=== PATIENT | female | born 1975 | race Caucasian/White ===

== ENCOUNTER 2017-10-04 13:53 | Emergency (ER) | payer OTHER, MEDICAID ==
[2017-10-04] MEDS ORDERED: Ketorolac Tromethamine 30 MG/ML VIAL ONE (15:19)
[2017-10-04] MEDS ORDERED: Insulin Regular 300 UNITS/3 ML VIAL ONE (16:12)
--- NOTE | 2017-10-04 16:54 | ULT ---
PELVIC ULTRASOUND: 10/04/17 HISTORY: Right lower quadrant and pelvic pain. Patient also complains of right hip pain. Symptoms have been pr esent for one week. FINDINGS: The uterus demonstrates slightly heterogeneous appearance but has otherwise normal appearance and no mass is visualized. Uterus measures 10.2 cm x 5.2 cm x 6.8 cm. The endometrial stripe measures 1.1 cm in thickness which is normal in thickness for a premenopausal female patient but would be abnormal in a postmenopausal female patient. No fluid or fluid collection is seen in the endometrial canal. The ovaries demonstrate a normal sonographic appearance bilaterally with the right ovary measuring 2. 7 cm x 1.6 cm x 3.3 cm. Left ovary measuring 2.5 cm x 1.3 cm x 2.3 cm. Doppler evaluation of each ovary demonstrates venous flow with arterial flow documented in the left o vary. There is suggestion of arterial flow in the right ovary. No free fluid is seen in the cul-de-sac. Small Nabothian cysts are seen in the cervix. IMPRESSION: Normal appearing uterus and bilateral ovaries. POS: [facility]
== END 2017-10-04 16:52 | disposition home or self-care (01) ==
LOC: ERS 13:53
DX: E11.65 Type 2 diabetes mellitus with hyperglycemia (principal); E78.5 Hyperlipidemia, unspecified; I10 Essential (primary) hypertension; F32.9 Major depressive disorder, single episode, unspecified; F17.210 Nicotine dependence, cigarettes, uncomplicated; Z79.4 Long term (current) use of insulin; Z79.899 Other long term (current) drug therapy
CPT/HCPCS: 36416; 76856; 96361; 96374; 96375; 99406; J1815; J1885

== ENCOUNTER 2017-10-24 13:21 | Emergency (ER) | payer MEDICAID, OTHER | END 2017-10-24 15:06 | disposition home or self-care (01) | LOC: ERS 13:21 | DX: R10.9 Unspecified abdominal pain (principal); E78.5 Hyperlipidemia, unspecified; E11.9 Type 2 diabetes mellitus without complications; I10 Essential (primary) hypertension; F32.9 Major depressive disorder, single episode, unspecified; F17.210 Nicotine dependence, cigarettes, uncomplicated; Z79.899 Other long term (current) drug therapy; Z79.4 Long term (current) use of insulin | CPT/HCPCS: 99284 ==

== ENCOUNTER 2019-07-20 12:15 | Outpatient (CLI) | payer OTHER ==
[2019-07-20 13:42] LABS: Anion Gap 17 mmol/L (10-20); BUN (Urea Nitrogen) 19 mg/dL (7.0-18.7); Calc. Creatinine Clearance 0 mL/min (70-130); Calcium 9.4 mg/dL (7.8-10.44); Carbon Dioxide 23 mmol/L (22-29); Chloride 95 mmol/L (98-107); Estimated GFR-MDRD 55; Glucose 452 mg/dL (70-105); Potassium 4.8 mmol/L (3.5-5.1); Sodium 130 mmol/L (136-145)
--- NOTE | 2019-07-20 15:27 | EKG ---
Test Reason : Blood Pressure : / mmHG Vent. Rate : 079 BPM Atrial Rate : 079 BPM P-R Int : 170 ms QRS Dur : 082 ms QT Int : 412 ms P-R-T Axes : 064 043 078 degrees QTc Int : 472 ms Sinus rhythm with frequent Premature ventricular complexes in a pattern of bigeminy Possible Left atrial enlargement abnormal When compared with ECG of 15-MAR-2017 16:44, (Unconfirmed) Fusion complexes are no longer Present Confirmed by DR. Rick TREJO ([id number]) on 07/20/2019 3:26:42 PM Referred By: LUCILA Confirmed By:DR. Rick TREJO
== END 2019-07-20 12:16 | disposition home or self-care (01) ==
LOC: LABBT 12:15
PROVIDERS: ATTEND Neurological Surgery
DX: Z01.818 Encounter for other preprocedural examination (principal); M54.16 Radiculopathy, lumbar region
CPT/HCPCS: 80048; 93005; 93010

== ENCOUNTER 2019-07-27 05:46 | Day surgery (SDC) | payer OTHER ==
[2019-07-20 12:32] VITALS: BMI 28.0
--- NOTE | 2019-07-26 21:10 | HP ---
HISTORY OF PRESENT ILLNESS: Ms. Naranjo is a 44-year-old woman here today after admission at [facility] for severe lower back pain and left lower extremity pain L5 fashion. She reportedly passed out on her back and then started to suffer this significant pain. MRI from [facility] revealed severe central canal stenosis at L4-L5 that is the very likely cause of her symptoms. She has not treated this with anything other than medications and home exercises. PAST MEDICAL HISTORY: Seizure disorder. CURRENT MEDICATIONS: Depakote, Diflucan, glyburide, metformin, metronidazole and Zithromax. ALLERGIES: NO KNOWN DRUG ALLERGIES. PHYSICAL EXAMINATION: NEURO: The patient is alert and oriented x3. She is distressed and tearful during the examination. Motor exam is limited secondary to severe pain. Positive straight leg raise on the left. ASSESSMENT: Lumbar radiculopathy. PLAN: Dr. Knight met with the patient, reviewed imaging, and advocated for an L4-5 decompression, possible diskectomy. He explained to the patient the risks, benefits, and alternatives to the procedure. The patient expressed understanding and elected to move forward with surgery as discussed. I do believe the patient is mentally competent and capable of making medical decisions for herself. We will move forward with surgery as planned. Job ID: [id number]
[2019-07-27] MEDS ORDERED: Midazolam HCl 2 mg/2 ml Vial ONE (06:51)
[2019-07-27] MEDS ORDERED: Fentanyl 100 MCG/2 ML VIAL ONE ×2 (07:07→09:03)
[2019-07-27] MEDS ORDERED: Bupivacaine HCl 0.5%/Epinephrine 1:200,000/PF 30 ml Vial ONE (07:35)
[2019-07-27] MEDS ORDERED: HYDROcodone/Acetaminophen 5/325 mg Tablet ONE (11:15)
--- NOTE | 2019-07-27 12:11 | OP ---
DATE OF PROCEDURE: 07/27/2019 [employer] SUPERVISOR: Yadiel Kumar PA-C INDICATION: Pain. DIAGNOSES: Lumbar stenosis, lumbar radiculopathy. PROCEDURES PERFORMED: L4-L5 decompression, L4 diskectomy. ANESTHESIA: General. DESCRIPTION OF PROCEDURE: The patient was brought into the operating room and placed under general anesthesia. She was flipped from the supine to prone position on the operating room table. A linear incision was planned over L4-L5. After prepping and draping and after an appropriate preoperative pause, the incision was created. The soft tissues were swept away from midline. A self-retaining retractor was placed for optimal exposure. After confirming the appropriate level with C-arm fluoroscopy, high-speed cutting drill bit as well as 2, 3, and 4 mm Kerrisons were used to perform a laminectomy extending along the inferior aspect of L4 and the superior aspect of L5. After decompressing the segment, the disk space was explored, where there was predominantly a disk osteophyte complex. There was an annulotomy performed and some disk material removed. At the end of the procedure, the descending L5 nerve roots and central canal were well decompressed. The wound was irrigated. Hemostasis was maintained throughout. The wound was then closed in anatomic layers and a pressure dressing was applied. There were no known procedural complications. Job ID: [id number]
[2019-07-27] MEDS ORDERED: PROPOFOL 200 MG/20 ML VIAL ONE (17:23)
[2019-07-27] MEDS ORDERED: Ondansetron PF 4 MG/2 ML Vial ONE (17:23)
[2019-07-27] MEDS ORDERED: Lidocaine 1% PF 5 ML VIAL ONE (17:23)
[2019-07-27] MEDS ORDERED: Glycopyrrolate 0.2 MG/ML 5 ML SYRINGE ONE (17:23)
[2019-07-27] MEDS ORDERED: diphenhydrAMINE 50 MG/ML VIAL ONE (17:23)
[2019-07-27] MEDS ORDERED: Dexamethasone 20 MG/5 ML VIAL ONE (17:23)
[2019-07-27] MEDS ORDERED: Rocuronium Bromide 10 MG/ML (10ML VIAL) ONE (17:23)
== END 2019-07-28 12:05 | disposition home or self-care (01) ==
LOC: SDC 05:46
PROVIDERS: ATTEND Neurological Surgery
PROC: 0SB20ZZ Excision of Lumbar Vertebral Disc, Open Approach (ICD-10-PCS; principal; 2019-07-28)
DX: M48.061 Spinal stenosis, lumbar region without neurogenic claudication (principal); M54.16 Radiculopathy, lumbar region; G40.909 Epilepsy, unspecified, not intractable, without status epilepticus; Z79.84 Long term (current) use of oral hypoglycemic drugs; Z79.899 Other long term (current) drug therapy
CPT/HCPCS: 36416; 76000; J0670; J0690; J1100; J1200; J2001; J2250; J2405; J2704; J3010

== ENCOUNTER 2021-10-12 08:36 | Inpatient (IN) | payer OTHER ==
[2021-10-12] MEDS ORDERED: Ketorolac Tromethamine 30 MG/ML VIAL ONE (10:17)
[2021-10-12 10:37] LABS: #Basophils 0.1 thou/uL (0.0-0.2); #Eosinphils 0.3 thou/uL (0.0-0.7); #Lymphocytes 2.8 thou/uL (1.20-3.40); #Monocytes 0.8 thou/uL (0.11-0.59); #Neutrophils 10.1 thou/uL (1.40-6.50); %Basophils 0.6 % (0.0-1.0); %Lymphocytes 19.8 % (21.0-51.0); %Monocytes 5.7 % (0.0-10.0); Hemoglobin 10.3 g/dL (12.0-16.0); Mean Corpuscular HGB CONC 33.1 g/dL (32.0-36.0); Mean Corpuscular Hemoglobin 29.8 pg (27.0-31.0); Mean Corpuscular Volume 90.2 fL (78.0-98.0); Mean Platelet Volume 7.1 fL (7.4-10.4); Platelet Count 366 thou/uL (130-400); RBC Distribution Width 12.9 % (11.5-14.5); Red Blood Cell (RBC) Count 3.47 mill/uL (4.20-5.40); White Blood Cell (WBC) Count 14.1 thou/uL (4.8-10.8)
[2021-10-12 11:06] LABS: ALT (SGPT) 8 U/L (8-55); AST (SGOT) 11 U/L (5-34); Albumin 3.5 g/dL (3.5-5.0); Alkaline Phosphatase 89 U/L (40-110); Anion Gap 16 mmol/L (10-20); BUN (Urea Nitrogen) 25 mg/dL (7.0-18.7); Bilirubin, Total 0.2 mg/dL (0.2-1.2); Calc. Creatinine Clearance 0 mL/min (70-130); Calcium 9.6 mg/dL (7.8-10.44); Carbon Dioxide 23 mmol/L (22-29); Chloride 102 mmol/L (98-107); Globulin 4.3 g/dL (2.4-3.5); Glucose 177 mg/dL (70-105); Potassium 4.6 mmol/L (3.5-5.1); Protein, Total 7.8 g/dL (6.0-8.3); Sodium 136 mmol/L (136-145)
[2021-10-12] MEDS ORDERED: Cefepime 2 GM VIAL ONE (11:22)
[2021-10-12] MEDS ORDERED: Vancomycin 1 GM/200 ML BAG ONE (11:22)
[2021-10-12 13:32] VITALS: BMI 29.9
[2021-10-12] MEDS ORDERED: Ondansetron PF 4 MG/2 ML Vial IVP PRN (13:45)
[2021-10-12] MEDS ORDERED: Acetaminophen 325 MG TAB PO PRN (13:45)
[2021-10-12] MEDS ORDERED: Ondansetron ODT 4 MG TAB SL PRN (13:45)
[2021-10-12] MEDS ORDERED: Dextrose 50% Abboject 50 ML SYRINGE SLOW IVP PRN (13:59)
[2021-10-12] MEDS ORDERED: HumaLOG 300 UNITS/3 ML VIAL SC PRN (13:59)
[2021-10-12] MEDS ORDERED: Dextrose 5% in Water 1,000 ML IV PRN (13:59)
[2021-10-12] MEDS ORDERED: Electrolyte Replacement Protocol 1 EACH FS SCH (14:00)
[2021-10-12 14:20] LABS: Magnesium 1.7 mg/dL (1.6-2.6)
[2021-10-12] MEDS ORDERED: FLU VACC QS2021-22(6MOS UP)/PF 60 MCG/0.5 ML SYRINGE IM ONE (14:30)
[2021-10-12] MEDS: Sodium Chloride 0.9% 1,000 ML IV SCH (14:55)
[2021-10-12] MEDS: Morphine 4 MG/ML VIAL SLOW IVP PRN ×2 (14:58→19:21)
[2021-10-12] MEDS ORDERED: Electrolyte Replacement Protocol FS PRN (15:00)
[2021-10-12] MEDS ORDERED: Magnesium 2 GM/50 ML 2 GM in Premix Bag 1 BAG IVPB SCH (15:15)
[2021-10-12] MEDS ORDERED: Vancomycin HCl 500 MG in Sodium Chloride 0.9% 100 ML IVPB SCH (15:45)
[2021-10-12] MEDS: HumaLOG 300 UNITS/3 ML VIAL SC PRN (17:18)
[2021-10-12] MEDS: Rosuvastatin 20 MG TAB PO SCH (21:27)
[2021-10-12] MEDS: Lantus 1000 UNITS/10 ML VIAL SC SCH (21:39)
[2021-10-13] MEDS: Cefepime 2 GM in Sodium Chloride 0.9% 100 ML IVPB SCH ×3 (00:09→22:20)
[2021-10-13] MEDS: Vancomycin HCl 1.5 GM in Sodium Chloride 0.9% 250 ML 300 ML IVPB SCH ×3 (01:25→23:02)
[2021-10-13] MEDS: Ondansetron PF 4 MG/2 ML Vial IVP PRN ×3 (05:03→18:29)
[2021-10-13 06:51] LABS: #Eosinphils 0.2 thou/uL (0.0-0.7); #Lymphocytes 2.6 thou/uL (1.20-3.40); #Monocytes 0.6 thou/uL (0.11-0.59); #Neutrophils 6.8 thou/uL (1.40-6.50); %Basophils 0.5 % (0.0-1.0); %Monocytes 6.1 % (0.0-10.0); %Neutrophils 66.3 % (42.0-75.0); Hemoglobin 8.8 g/dL (12.0-16.0); Mean Corpuscular HGB CONC 33.1 g/dL (32.0-36.0); Mean Corpuscular Hemoglobin 29.8 pg (27.0-31.0); Mean Corpuscular Volume 90.3 fL (78.0-98.0); Mean Platelet Volume 7.5 fL (7.4-10.4); Platelet Count 287 thou/uL (130-400); RBC Distribution Width 12.7 % (11.5-14.5); Red Blood Cell (RBC) Count 2.94 mill/uL (4.20-5.40); White Blood Cell (WBC) Count 10.2 thou/uL (4.8-10.8)
[2021-10-13 06:58] LABS: SARS-CoV-2 NAA Rapid Test Not Detected (NotDetected)
[2021-10-13 07:10] LABS: Anion Gap 12 mmol/L (10-20); BUN (Urea Nitrogen) 21 mg/dL (7.0-18.7); Calc. Creatinine Clearance 98 mL/min (70-130); Calcium 8.7 mg/dL (7.8-10.44); Carbon Dioxide 22 mmol/L (22-29); Chloride 107 mmol/L (98-107); Cholesterol 253 mg/dl (< 200 Desired); Glucose 196 mg/dL (70-105); HDL Cholesterol 23 mg/dL (>60 Neg Risk); LDL Cholesterol, Calculated 173 mg/dL; Magnesium 2.3 mg/dL (1.6-2.6); Potassium 4.1 mmol/L (3.5-5.1); Sodium 137 mmol/L (136-145); Triglycerides 285 mg/dL (Less than 150)
[2021-10-13] MEDS: Enoxaparin Sodium 40 MG/0.4 ML SYRINGE SC SCH (08:06)
[2021-10-13] MEDS: Sodium Chloride 0.9% 1,000 ML IV SCH (09:23)
[2021-10-13] MEDS ORDERED: Fentanyl 100 MCG/2 ML VIAL ONE (10:39)
[2021-10-13] MEDS ORDERED: Bupivacaine 0.25% HCL 30 ML VIAL ONE (10:40)
[2021-10-13] MEDS ORDERED: Lidocaine 1% w/Epinephrine 1:100K 20 ML VIAL ONE (10:40)
[2021-10-13] MEDS ORDERED: PROPOFOL 200 MG/20 ML VIAL ONE (10:54)
[2021-10-13] MEDS ORDERED: Ondansetron PF 4 MG/2 ML Vial ONE (10:54)
[2021-10-13] MEDS ORDERED: Lidocaine 1% PF 5 ML VIAL ONE (10:54)
[2021-10-13] MEDS ORDERED: Phenylephrine 10 MG/ML VIAL ONE (10:54)
[2021-10-13] MEDS ORDERED: Ondansetron HCl/PF 4 MG/2 ML Vial IVP PRN (11:35)
[2021-10-13] MEDS ORDERED: Promethazine HCl 25 MG/ML VIAL IVPB PRN (11:35)
[2021-10-13] MEDS ORDERED: Promethazine HCl 25 MG/ML VIAL IM PRN (11:35)
[2021-10-13] MEDS ORDERED: Vancomycin 1 GM in Premix Bag 1 BAG IVPB SCH (12:00)
[2021-10-13] MEDS: Morphine 4 MG/ML VIAL SLOW IVP PRN (12:19)
[2021-10-13] MEDS ORDERED: Polyethylene Glycol 3350 17 GM Packet PO PRN (13:27)
[2021-10-13] MEDS ORDERED: Morphine 4 MG/ML VIAL SLOW IVP SCH (13:30)
[2021-10-13] MEDS: HumaLOG 300 UNITS/3 ML VIAL SC PRN (16:25)
[2021-10-13] MEDS: HYDROcodone/Acetaminophen 5/325 mg Tablet PO PRN ×2 (18:29→22:10)
[2021-10-13] MEDS ORDERED: HumaLOG 300 UNITS/3 ML VIAL SC PRN (18:49)
[2021-10-13] MEDS: Rosuvastatin 20 MG TAB PO SCH (20:55)
[2021-10-13] MEDS: Senokot S 8.6-50 MG TAB PO SCH (20:55)
[2021-10-13] MEDS: Lantus 1000 UNITS/10 ML VIAL SC SCH (20:57)
[2021-10-14 00:06] LABS: Vancomycin, Trough 57.1 ug/mL
[2021-10-14] MEDS: HYDROcodone/Acetaminophen 5/325 mg Tablet PO PRN ×3 (05:08→20:30)
[2021-10-14 06:27] LABS: #Basophils 0.1 thou/uL (0.0-0.2); #Eosinphils 0.1 thou/uL (0.0-0.7); #Lymphocytes 2.3 thou/uL (1.20-3.40); #Monocytes 0.5 thou/uL (0.11-0.59); #Neutrophils 5.5 thou/uL (1.40-6.50); %Basophils 0.8 % (0.0-1.0); %Eosinophils 1.6 % (0.0-10.0); %Lymphocytes 26.5 % (21.0-51.0); %Monocytes 6.2 % (0.0-10.0); Hemoglobin 8.4 g/dL (12.0-16.0); Mean Corpuscular Hemoglobin 30.4 pg (27.0-31.0); Mean Corpuscular Volume 89.4 fL (78.0-98.0); Mean Platelet Volume 7.4 fL (7.4-10.4); Platelet Count 270 thou/uL (130-400); RBC Distribution Width 12.6 % (11.5-14.5); Red Blood Cell (RBC) Count 2.76 mill/uL (4.20-5.40); White Blood Cell (WBC) Count 8.5 thou/uL (4.8-10.8)
[2021-10-14 06:56] LABS: Anion Gap 11 mmol/L (10-20); BUN (Urea Nitrogen) 15 mg/dL (7.0-18.7); Calc. Creatinine Clearance 103 mL/min (70-130); Calcium 8.7 mg/dL (7.8-10.44); Carbon Dioxide 23 mmol/L (22-29); Chloride 107 mmol/L (98-107); Glucose 172 mg/dL (70-105); Potassium 4.2 mmol/L (3.5-5.1); Sodium 137 mmol/L (136-145)
[2021-10-14] MEDS: Morphine 4 MG/ML VIAL SLOW IVP PRN ×2 (08:19→16:00)
[2021-10-14] MEDS: Senokot S 8.6-50 MG TAB PO SCH ×2 (08:19→20:31)
[2021-10-14] MEDS: Enoxaparin Sodium 40 MG/0.4 ML SYRINGE SC SCH (08:19)
[2021-10-14] MEDS: Ondansetron PF 4 MG/2 ML Vial IVP PRN (08:30)
[2021-10-14] MEDS ORDERED: HumaLOG 300 UNITS/3 ML VIAL SC PRN (10:39)
[2021-10-14] MEDS ORDERED: Lantus 1000 UNITS/10 ML VIAL SC SCH (10:45)
[2021-10-14] MEDS: Cefepime 2 GM in Sodium Chloride 0.9% 100 ML IVPB SCH (11:14)
[2021-10-14] MEDS: HumaLOG 300 UNITS/3 ML VIAL SC SCH (11:17)
[2021-10-14 12:54] LABS: Vancomycin, Trough 33.8 ug/mL
[2021-10-14] MEDS ORDERED: Vancomycin HCl 1.25 GM in Sodium Chloride 0.9% 250 ML 250 ML IVPB SCH (13:15)
[2021-10-14] MEDS: Vancomycin HCl 1.5 GM in Sodium Chloride 0.9% 250 ML 300 ML IVPB SCH (13:16)
[2021-10-14] MEDS: Metoclopramide 10 MG/10 ML UDCUP PO PRN (15:58)
[2021-10-14] MEDS ORDERED: HumaLOG 300 UNITS/3 ML VIAL SC SCH (17:00)
[2021-10-14] MEDS: Rosuvastatin 20 MG TAB PO SCH (20:31)
[2021-10-15] MEDS: HYDROcodone/Acetaminophen 5/325 mg Tablet PO PRN ×3 (00:02→11:34)
[2021-10-15] MEDS: Cefepime 2 GM in Sodium Chloride 0.9% 100 ML IVPB SCH ×3 (00:03→23:41)
[2021-10-15] MEDS: Ondansetron PF 4 MG/2 ML Vial IVP PRN (03:46)
[2021-10-15] MEDS ORDERED: HumaLOG 300 UNITS/3 ML VIAL SC SCH (08:00)
[2021-10-15] MEDS: Morphine 4 MG/ML VIAL SLOW IVP PRN (08:12)
[2021-10-15] MEDS: Saccharomyces boulardii 250 MG CAP PO SCH (08:13)
[2021-10-15] MEDS: Senokot S 8.6-50 MG TAB PO SCH ×2 (08:13→20:47)
[2021-10-15] MEDS: Metoclopramide 10 MG/10 ML UDCUP PO PRN ×2 (08:14→18:52)
[2021-10-15] MEDS: Enoxaparin Sodium 40 MG/0.4 ML SYRINGE SC SCH (08:14)
[2021-10-15 08:27] LABS: Vancomycin, Random 22.3 ug/mL (See Comment)
[2021-10-15] MEDS ORDERED: Lantus 1000 UNITS/10 ML VIAL SC SCH (09:00)
[2021-10-15] MEDS: HumaLOG 300 UNITS/3 ML VIAL SC SCH (11:25)
[2021-10-15] MEDS: Vancomycin HCl 750 MG in Sodium Chloride 0.9% 250 ML 250 ML IVPB SCH (12:50)
[2021-10-15] MEDS ORDERED: HumaLOG 300 UNITS/3 ML VIAL SC PRN (15:57)
[2021-10-15] MEDS ORDERED: HYDROcodone/Acetaminophen 5/325 mg Tablet PO PRN (16:00)
[2021-10-15] MEDS: HYDROcodone/Acetaminophen 10/325 mg Tablet PO PRN ×2 (18:52→23:48)
[2021-10-15] MEDS: Rosuvastatin 20 MG TAB PO SCH (20:47)
[2021-10-16] MEDS: Metoclopramide 10 MG/10 ML UDCUP PO PRN ×4 (00:35→17:44)
[2021-10-16] MEDS: Vancomycin HCl 750 MG in Sodium Chloride 0.9% 250 ML 250 ML IVPB SCH ×2 (00:49→12:12)
[2021-10-16] MEDS: Morphine 4 MG/ML VIAL SLOW IVP PRN ×2 (04:39→13:23)
[2021-10-16] MEDS: HYDROcodone/Acetaminophen 10/325 mg Tablet PO PRN ×3 (05:43→17:38)
[2021-10-16 07:43] LABS: Anion Gap 14 mmol/L (10-20); BUN (Urea Nitrogen) 11 mg/dL (7.0-18.7); Calc. Creatinine Clearance 114 mL/min (70-130); Calcium 8.9 mg/dL (7.8-10.44); Carbon Dioxide 22 mmol/L (22-29); Chloride 106 mmol/L (98-107); Glucose 93 mg/dL (70-105); Potassium 4.2 mmol/L (3.5-5.1); Sodium 138 mmol/L (136-145)
[2021-10-16 08:00] LABS: #Eosinphils 0.2 thou/uL (0.0-0.7); #Lymphocytes 2.6 thou/uL (1.20-3.40); #Monocytes 0.5 thou/uL (0.11-0.59); %Eosinophils 2.1 % (0.0-10.0); %Lymphocytes 30.9 % (21.0-51.0); %Monocytes 6.4 % (0.0-10.0); %Neutrophils 60.6 % (42.0-75.0); Hemoglobin 8.5 g/dL (12.0-16.0); Mean Corpuscular HGB CONC 32.8 g/dL (32.0-36.0); Mean Corpuscular Hemoglobin 29.4 pg (27.0-31.0); Mean Corpuscular Volume 89.7 fL (78.0-98.0); Mean Platelet Volume 7.6 fL (7.4-10.4); Platelet Count 293 thou/uL (130-400); RBC Distribution Width 12.6 % (11.5-14.5); Red Blood Cell (RBC) Count 2.89 mill/uL (4.20-5.40); White Blood Cell (WBC) Count 8.3 thou/uL (4.8-10.8)
[2021-10-16] MEDS: Senokot S 8.6-50 MG TAB PO SCH (08:19)
[2021-10-16] MEDS: Saccharomyces boulardii 250 MG CAP PO SCH (08:19)
[2021-10-16] MEDS: Enoxaparin Sodium 40 MG/0.4 ML SYRINGE SC SCH (08:20)
[2021-10-16] MEDS ORDERED: Lantus 1000 UNITS/10 ML VIAL SC SCH (09:00)
[2021-10-16] MEDS: Cefepime 2 GM in Sodium Chloride 0.9% 100 ML IVPB SCH (11:30)
[2021-10-16] MEDS ORDERED: Loratadine 10 MG TAB PO PRN (14:13)
[2021-10-16] MEDS ORDERED: Ciprofloxacin 500 MG TAB PO SCH ×2 (14:15→20:00)
[2021-10-16] MEDS ORDERED: diphenhydrAMINE 50 MG/ML VIAL IVP PRN (14:17)
[2021-10-16] MEDS ORDERED: Sodium Chloride 0.65% Nasal 44 ML BOT EA NARE SCH (15:00)
[2021-10-16 18:07] VITALS: TEMP 97.4
[2021-10-16 18:32] VITALS: BP 169/98
== END 2021-10-16 18:33 | disposition home or self-care (01) | DRG 872 ==
LOC: ERS 08:36 → T4-A 11:44
PROVIDERS: ADMIT Internal Medicine; ATTEND Internal Medicine
PROC: 0HDNXZZ Extraction of Left Foot Skin, External Approach (ICD-10-PCS; principal; 2021-10-13)
DX: A41.9 Sepsis, unspecified organism (principal); L02.612 Cutaneous abscess of left foot; L97.429 Non-pressure chronic ulcer of left heel and midfoot with unspecified severity; N17.9 Acute kidney failure, unspecified; E11.628 Type 2 diabetes mellitus with other skin complications; Z20.822 Contact with and (suspected) exposure to COVID-19; E78.5 Hyperlipidemia, unspecified; E11.65 Type 2 diabetes mellitus with hyperglycemia; N18.2 Chronic kidney disease, stage 2 (mild); G40.909 Epilepsy, unspecified, not intractable, without status epilepticus; F17.210 Nicotine dependence, cigarettes, uncomplicated; F12.10 Cannabis abuse, uncomplicated; I12.9 Hypertensive chronic kidney disease with stage 1 through stage 4 chronic kidney disease, or unspecified chronic kidney disease; K21.9 Gastro-esophageal reflux disease without esophagitis; E11.40 Type 2 diabetes mellitus with diabetic neuropathy, unspecified; E66.9 Obesity, unspecified; E11.621 Type 2 diabetes mellitus with foot ulcer; D53.9 Nutritional anemia, unspecified; Z87.440 Personal history of urinary (tract) infections; Z88.1 Allergy status to other antibiotic agents; Z88.8 Allergy status to other drugs, medicaments and biological substances; Z79.899 Other long term (current) drug therapy; Z79.4 Long term (current) use of insulin; Z98.51 Tubal ligation status; Z98.890 Other specified postprocedural states; Z82.49 Family history of ischemic heart disease and other diseases of the circulatory system; Z83.3 Family history of diabetes mellitus; Z71.6 Tobacco abuse counseling; Z68.29 Body mass index [BMI] 29.0-29.9, adult
CPT/HCPCS: 36415; 36416; 80048; 80053; 80061; 80202; 83036; 83735; 84443; 85025; 86140; 87040; 87070; 87077; 87205; 96365; 96375; J0692; J1650; J1815; J1885; J2270; J2370; J2405; J2704; J3010; J3370; J3475; J3490; J7050; S0020; U0002; U0003; U0005

== ENCOUNTER 2021-10-22 23:17 | Inpatient (IN) | payer OTHER ==
[2021-10-23] MEDS ORDERED: Ketorolac Tromethamine 30 MG/ML VIAL ONE (00:15)
[2021-10-23] MEDS ORDERED: Lidocaine 1% PF 5 ML VIAL ONE (00:31)
[2021-10-23 00:53] LABS: #Basophils 0.1 thou/uL (0.0-0.2); #Eosinphils 0.2 thou/uL (0.0-0.7); #Lymphocytes 2.9 thou/uL (1.20-3.40); #Neutrophils 6.2 thou/uL (1.40-6.50); %Basophils 0.7 % (0.0-1.0); %Eosinophils 2.4 % (0.0-10.0); %Lymphocytes 27.5 % (21.0-51.0); %Monocytes 9.7 % (0.0-10.0); %Neutrophils 59.7 % (42.0-75.0); Hemoglobin 8.6 g/dL (12.0-16.0); Mean Corpuscular HGB CONC 34.1 g/dL (32.0-36.0); Mean Corpuscular Volume 90.9 fL (78.0-98.0); Mean Platelet Volume 7.4 fL (7.4-10.4); Platelet Count 291 thou/uL (130-400); RBC Distribution Width 12.9 % (11.5-14.5); Red Blood Cell (RBC) Count 2.77 mill/uL (4.20-5.40); White Blood Cell (WBC) Count 10.4 thou/uL (4.8-10.8)
[2021-10-23 01:19] LABS: ALT (SGPT) 23 U/L (8-55); AST (SGOT) 17 U/L (5-34); Alkaline Phosphatase 110 U/L (40-110); Anion Gap 14 mmol/L (10-20); BUN (Urea Nitrogen) 27 mg/dL (7.0-18.7); Bilirubin, Total Less than 0.2 mg/dL (0.2-1.2); Calc. Creatinine Clearance 0 mL/min (70-130); Calcium 8.9 mg/dL (7.8-10.44); Carbon Dioxide 24 mmol/L (22-29); Chloride 97 mmol/L (98-107); Globulin 3.6 g/dL (2.4-3.5); Glucose 500 mg/dL (70-105); Potassium 4.7 mmol/L (3.5-5.1); Protein, Total 6.6 g/dL (6.0-8.3); Sodium 130 mmol/L (136-145)
[2021-10-23] MEDS ORDERED: Cefepime 2 GM VIAL ONE (02:12)
[2021-10-23] MEDS ORDERED: Insulin Regular 300 UNITS/3 ML VIAL ONE (02:12)
[2021-10-23] MEDS ORDERED: Vancomycin HCl 1.5 GM in Sodium Chloride 0.9% 250 ML 300 ML IVPB SCH (02:30)
[2021-10-23] MEDS ORDERED: Acetaminophen 325 MG TAB PO PRN (02:35)
[2021-10-23] MEDS ORDERED: Dextrose 5% in Water 1,000 ML IV PRN ×2 (02:35→09:30)
[2021-10-23] MEDS ORDERED: Senokot S 8.6-50 MG TAB PO PRN (02:35)
[2021-10-23] MEDS ORDERED: Dextrose 50% Abboject 50 ML SYRINGE SLOW IVP PRN ×2 (02:35→09:30)
[2021-10-23] MEDS ORDERED: Sodium Chloride 0.9% 1,000 ML IV SCH (02:45)
[2021-10-23] MEDS ORDERED: Insulin Glargine 25 UNITS in Pre-Filled Syringe 1 EACH SC SCH (02:45)
[2021-10-23] MEDS ORDERED: Lantus 1000 UNITS/10 ML VIAL SC SCH ×2 (03:00→09:00)
[2021-10-23] MEDS ORDERED: Morphine 4 MG/ML VIAL ONE (03:15)
[2021-10-23] MEDS ORDERED: Ondansetron PF 4 MG/2 ML Vial ONE (03:15)
[2021-10-23 03:20] LABS: Hemoglobin 8.6 g/dL (12.0-16.0); Mean Corpuscular HGB CONC 34.4 g/dL (32.0-36.0); Mean Corpuscular Hemoglobin 30.7 pg (27.0-31.0); Mean Corpuscular Volume 89.5 fL (78.0-98.0); Mean Platelet Volume 7.3 fL (7.4-10.4); Platelet Count 290 thou/uL (130-400); RBC Distribution Width 12.8 % (11.5-14.5); White Blood Cell (WBC) Count 9.6 thou/uL (4.8-10.8)
[2021-10-23 03:43] LABS: Eosinophils 2 % (0-10); Lymphocytes 34 % (21-51); MDiff Complete? YES; Monocytes 10 % (0-10); Neutrophil 54 % (42-75); Platelet Morphology Comment Appears Adequate; RBC Morphology Normal
[2021-10-23 03:47] LABS: ALT (SGPT) 22 U/L (8-55); AST (SGOT) 15 U/L (5-34); Albumin 3.1 g/dL (3.5-5.0); Alkaline Phosphatase 109 U/L (40-110); Anion Gap 15 mmol/L (10-20); BUN (Urea Nitrogen) 29 mg/dL (7.0-18.7); Bilirubin, Total Less than 0.2 mg/dL (0.2-1.2); Calc. Creatinine Clearance 0 mL/min (70-130); Carbon Dioxide 21 mmol/L (22-29); Chloride 101 mmol/L (98-107); Globulin 3.5 g/dL (2.4-3.5); Glucose 182 mg/dL (70-105); Potassium 3.7 mmol/L (3.5-5.1); Protein, Total 6.6 g/dL (6.0-8.3); Sodium 133 mmol/L (136-145)
[2021-10-23 04:43] LABS: Lactic Acid 1.5 mmol/L (0.5-2.2)
[2021-10-23 05:33] LABS: Bacteria/HPF 1+ HPF (None Seen); Bilirubin Negative (Negative); Blood, Urine 1+ (Negative); Clarity Turbid (Clear); Glucose, Urine (Dipstick) Greater than 1000 mg/dL (Negative); Ketone, Urine Negative (Negative); Leukocyte Negative Leu/uL (Negative); Nitrite Negative (Negative); Protein, Urine (Dipstick) 100 mg/dL (Neg-Trace); RBC/HPF 0-3 HPF (0-3); Specific Gravity, Urine 1.021 (1.002-1.036); Squamous Epithelial 21-50 HPF (0-3); Urobilinogen Normal mg/dL (Less than 2); pH, Urine 5.5 (5.0-9.0)
[2021-10-23] MEDS: HYDROcodone/Acetaminophen 5/325 mg Tablet PO PRN ×2 (05:41→13:14)
[2021-10-23 06:18] VITALS: BMI 31.2
[2021-10-23] MEDS: Nicotine 14 MG PATCH TD SCH (06:19)
[2021-10-23 07:33] LABS: Hemoglobin A1c 10.1 % (4.0-6.0)
[2021-10-23] MEDS: Famotidine 20 MG TAB PO SCH ×2 (08:29→20:57)
[2021-10-23] MEDS: Zinc Sulfate 220 MG CAP PO SCH (08:29)
[2021-10-23] MEDS: Saccharomyces boulardii 250 MG CAP PO SCH (08:29)
[2021-10-23] MEDS: Enoxaparin Sodium 40 MG/0.4 ML SYRINGE SC SCH ×2 (08:30→08:52)
[2021-10-23 08:51] LABS: Creatinine, Urine 52.05 mg/dL (47-110)
[2021-10-23] MEDS: Lactated Ringer's 1,000 ML IV SCH ×2 (11:45→21:10)
[2021-10-23] MEDS: HumaLOG 300 UNITS/3 ML VIAL SC PRN ×2 (11:49→17:33)
[2021-10-23] MEDS: HumaLOG 300 UNITS/3 ML VIAL SC SCH ×2 (11:50→17:33)
[2021-10-23] MEDS ORDERED: Ampicillin/Sulbactam 3 GM in Sodium Chloride 0.9% 100 ML IVPB SCH (12:00)
[2021-10-23] MEDS: Morphine 4 MG/ML VIAL SLOW IVP PRN ×2 (13:37→21:05)
[2021-10-23] MEDS: Ondansetron PF 4 MG/2 ML Vial IVP PRN ×2 (17:29→21:00)
[2021-10-23] MEDS: Lantus 1000 UNITS/10 ML VIAL SC SCH (20:47)
[2021-10-23] MEDS: Rosuvastatin 20 MG TAB PO SCH (20:57)
[2021-10-23 22:32] LABS: SARS-CoV-2 NAA Rapid Test Not Detected (NotDetected)
[2021-10-24] MEDS: Lactated Ringer's 1,000 ML IV SCH ×3 (02:05→21:19)
[2021-10-24] MEDS: Vancomycin 1 GM in Premix Bag 1 BAG IVPB SCH (03:12)
[2021-10-24] MEDS: Morphine 4 MG/ML VIAL SLOW IVP PRN ×3 (03:23→21:26)
[2021-10-24] MEDS ORDERED: Ondansetron PF 4 MG/2 ML Vial IVP SCH (04:35)
[2021-10-24] MEDS: Nicotine 14 MG PATCH TD SCH (06:11)
[2021-10-24 07:04] LABS: #Basophils 0.1 thou/uL (0.0-0.2); #Eosinphils 0.3 thou/uL (0.0-0.7); #Lymphocytes 2.6 thou/uL (1.20-3.40); #Monocytes 0.7 thou/uL (0.11-0.59); #Neutrophils 5.2 thou/uL (1.40-6.50); %Basophils 1.1 % (0.0-1.0); %Eosinophils 2.9 % (0.0-10.0); %Lymphocytes 29.7 % (21.0-51.0); %Monocytes 8.3 % (0.0-10.0); Hemoglobin 7.8 g/dL (12.0-16.0); Mean Corpuscular HGB CONC 32.5 g/dL (32.0-36.0); Mean Corpuscular Hemoglobin 29.4 pg (27.0-31.0); Mean Corpuscular Volume 90.5 fL (78.0-98.0); Mean Platelet Volume 7.3 fL (7.4-10.4); Platelet Count 291 thou/uL (130-400); RBC Distribution Width 12.7 % (11.5-14.5); Red Blood Cell (RBC) Count 2.66 mill/uL (4.20-5.40); White Blood Cell (WBC) Count 8.9 thou/uL (4.8-10.8)
[2021-10-24 07:22] LABS: Anion Gap 12 mmol/L (10-20); BUN (Urea Nitrogen) 25 mg/dL (7.0-18.7); CRP (Inflammatory) 4.17 mg/dL (= or < 0.5); Calc. Creatinine Clearance 78 mL/min (70-130); Calcium 8.7 mg/dL (7.8-10.44); Carbon Dioxide 24 mmol/L (22-29); Cardiac Risk 7.3 (Less than 4.5); Chloride 104 mmol/L (98-107); Cholesterol 196 mg/dl (< 200 Desired); Glucose 207 mg/dL (70-105); HDL Cholesterol 27 mg/dL (>60 Neg Risk); LDL Cholesterol, Calculated 131 mg/dL; Magnesium 1.6 mg/dL (1.6-2.6); Phosphorus 3.5 mg/dL (2.3-4.7); Sodium 135 mmol/L (136-145); Triglycerides 190 mg/dL (Less than 150)
[2021-10-24] MEDS: HumaLOG 300 UNITS/3 ML VIAL SC SCH ×3 (08:17→17:02)
[2021-10-24] MEDS: Enoxaparin Sodium 40 MG/0.4 ML SYRINGE SC SCH (08:17)
[2021-10-24] MEDS: Zinc Sulfate 220 MG CAP PO SCH (08:18)
[2021-10-24] MEDS: Saccharomyces boulardii 250 MG CAP PO SCH (08:18)
[2021-10-24] MEDS: Famotidine 20 MG TAB PO SCH ×2 (08:18→21:17)
[2021-10-24] MEDS: HYDROcodone/Acetaminophen 5/325 mg Tablet PO PRN ×2 (08:23→16:28)
[2021-10-24] MEDS ORDERED: Cefepime 2 GM in Sodium Chloride 0.9% 100 ML IVPB SCH (09:00)
[2021-10-24] MEDS ORDERED: Enoxaparin Sodium 40 MG/0.4 ML SYRINGE SC SCH (09:00)
[2021-10-24] MEDS: Ondansetron PF 4 MG/2 ML Vial IVP PRN (16:19)
[2021-10-24] MEDS: Rosuvastatin 20 MG TAB PO SCH (21:17)
[2021-10-24] MEDS: Cefepime 2 GM in Sodium Chloride 0.9% 100 ML IVPB SCH (21:18)
[2021-10-24] MEDS: Lantus 1000 UNITS/10 ML VIAL SC SCH (21:19)
[2021-10-25 02:08] LABS: #Basophils 0.1 thou/uL (0.0-0.2); #Eosinphils 0.3 thou/uL (0.0-0.7); #Lymphocytes 2.8 thou/uL (1.20-3.40); #Monocytes 0.8 thou/uL (0.11-0.59); #Neutrophils 4.2 thou/uL (1.40-6.50); %Basophils 0.8 % (0.0-1.0); %Eosinophils 3.2 % (0.0-10.0); %Lymphocytes 34.4 % (21.0-51.0); %Monocytes 9.5 % (0.0-10.0); Hemoglobin 7.7 g/dL (12.0-16.0); Mean Corpuscular HGB CONC 33.8 g/dL (32.0-36.0); Mean Corpuscular Hemoglobin 30.3 pg (27.0-31.0); Mean Corpuscular Volume 89.6 fL (78.0-98.0); Platelet Count 269 thou/uL (130-400); RBC Distribution Width 12.7 % (11.5-14.5); Red Blood Cell (RBC) Count 2.54 mill/uL (4.20-5.40)
[2021-10-25 02:31] LABS: Vancomycin, Trough 13.4 ug/mL
[2021-10-25 02:33] LABS: Anion Gap 14 mmol/L (10-20); BUN (Urea Nitrogen) 19 mg/dL (7.0-18.7); Calc. Creatinine Clearance 84 mL/min (70-130); Calcium 8.9 mg/dL (7.8-10.44); Carbon Dioxide 22 mmol/L (22-29); Chloride 103 mmol/L (98-107); Glucose 270 mg/dL (70-105); Magnesium 2.4 mg/dL (1.6-2.6); Phosphorus 3.3 mg/dL (2.3-4.7); Potassium 4.6 mmol/L (3.5-5.1); Sodium 134 mmol/L (136-145)
[2021-10-25 02:35] LABS: Iron 27 ug/dL (50-170); Iron Binding Capacity, Total 206 mcg/dL (265-497)
[2021-10-25] MEDS: Morphine 4 MG/ML VIAL SLOW IVP PRN ×2 (03:09→20:47)
[2021-10-25] MEDS: Ondansetron PF 4 MG/2 ML Vial IVP PRN ×3 (03:09→17:25)
[2021-10-25] MEDS: VANCOMYCIN 1.25 GM/250 ML BAG 1.25 GM in Premix Bag 1 BAG IVPB SCH (03:36)
[2021-10-25] MEDS: Vancomycin 1 GM in Premix Bag 1 BAG IVPB SCH (04:18)
[2021-10-25] MEDS: Lactated Ringer's 1,000 ML IV SCH ×3 (06:55→20:48)
[2021-10-25] MEDS: Nicotine 14 MG PATCH TD SCH (08:07)
[2021-10-25] MEDS: Amlodipine 5 MG TAB PO SCH (08:08)
[2021-10-25] MEDS: Saccharomyces boulardii 250 MG CAP PO SCH (08:08)
[2021-10-25] MEDS: Famotidine 20 MG TAB PO SCH ×2 (08:09→20:46)
[2021-10-25] MEDS: Zinc Sulfate 220 MG CAP PO SCH (08:09)
[2021-10-25] MEDS: Enoxaparin Sodium 40 MG/0.4 ML SYRINGE SC SCH (08:10)
[2021-10-25] MEDS: Cefepime 2 GM in Sodium Chloride 0.9% 100 ML IVPB SCH ×2 (08:11→22:24)
[2021-10-25] MEDS: HYDROcodone/Acetaminophen 5/325 mg Tablet PO PRN ×3 (08:17→22:24)
[2021-10-25] MEDS: HumaLOG 300 UNITS/3 ML VIAL SC SCH ×3 (08:21→17:41)
[2021-10-25] MEDS: Iron, Sodium Ferric Gluconate 250 MG in Sodium Chloride 0.9% 250 ML 250 ML IVPB SCH (10:57)
[2021-10-25] MEDS ORDERED: Magnevist 469MG/ML 20 ML VIAL ONE (11:41)
[2021-10-25] MEDS ORDERED: Aspirin 81 mg Enteric Coated Tablet PO SCH (17:15)
[2021-10-25] MEDS ORDERED: Metoclopramide HCl 10 MG TAB PO PRN (20:17)
[2021-10-25] MEDS: Atorvastatin Calcium 40 MG TAB PO SCH (20:46)
[2021-10-25] MEDS: Lantus 1000 UNITS/10 ML VIAL SC SCH (20:54)
[2021-10-26] MEDS: HYDROcodone/Acetaminophen 5/325 mg Tablet PO PRN ×4 (03:54→21:41)
[2021-10-26] MEDS: Lactated Ringer's 1,000 ML IV SCH (03:55)
[2021-10-26] MEDS: VANCOMYCIN 1.25 GM/250 ML BAG 1.25 GM in Premix Bag 1 BAG IVPB SCH (03:55)
[2021-10-26] MEDS: Nicotine 14 MG PATCH TD SCH (03:56)
[2021-10-26 06:30] LABS: #Basophils 0.1 thou/uL (0.0-0.2); #Eosinphils 0.3 thou/uL (0.0-0.7); #Lymphocytes 3.3 thou/uL (1.20-3.40); #Monocytes 1.1 thou/uL (0.11-0.59); #Neutrophils 4.4 thou/uL (1.40-6.50); %Eosinophils 3.3 % (0.0-10.0); %Lymphocytes 35.8 % (21.0-51.0); %Monocytes 11.6 % (0.0-10.0); %Neutrophils 48.3 % (42.0-75.0); Hemoglobin 8.6 g/dL (12.0-16.0); Mean Corpuscular Hemoglobin 30.6 pg (27.0-31.0); Mean Corpuscular Volume 90.1 fL (78.0-98.0); Mean Platelet Volume 6.9 fL (7.4-10.4); Platelet Count 331 thou/uL (130-400); RBC Distribution Width 12.5 % (11.5-14.5); Red Blood Cell (RBC) Count 2.82 mill/uL (4.20-5.40); White Blood Cell (WBC) Count 9.2 thou/uL (4.8-10.8)
[2021-10-26 06:51] LABS: Anion Gap 13 mmol/L (10-20); BUN (Urea Nitrogen) 13 mg/dL (7.0-18.7); Calc. Creatinine Clearance 100 mL/min (70-130); Carbon Dioxide 24 mmol/L (22-29); Chloride 106 mmol/L (98-107); Magnesium 1.8 mg/dL (1.6-2.6); Phosphorus 3.7 mg/dL (2.3-4.7); Potassium 4.1 mmol/L (3.5-5.1); Sodium 139 mmol/L (136-145)
[2021-10-26 06:53] LABS: Glucose 58 mg/dL (70-105)
[2021-10-26] MEDS ORDERED: FLU VACC QS2021-22(6MOS UP)/PF 60 MCG/0.5 ML SYRINGE IM ONE (09:00)
[2021-10-26] MEDS: Aspirin 81 mg Enteric Coated Tablet PO SCH (09:23)
[2021-10-26] MEDS: Saccharomyces boulardii 250 MG CAP PO SCH (09:23)
[2021-10-26] MEDS: Zinc Sulfate 220 MG CAP PO SCH (09:23)
[2021-10-26] MEDS: Famotidine 20 MG TAB PO SCH ×2 (09:24→21:38)
[2021-10-26] MEDS: Amlodipine 5 MG TAB PO SCH (09:24)
[2021-10-26] MEDS: HumaLOG 300 UNITS/3 ML VIAL SC SCH ×3 (09:37→18:23)
[2021-10-26] MEDS ORDERED: Metoclopramide HCl 10 MG/2 ML VIAL IVP PRN (09:51)
[2021-10-26] MEDS ORDERED: Amlodipine 5 MG TAB PO SCH (12:45)
[2021-10-26] MEDS: Cefepime 2 GM in Sodium Chloride 0.9% 100 ML IVPB SCH ×2 (13:37→21:38)
[2021-10-26] MEDS: Iron, Sodium Ferric Gluconate 250 MG in Sodium Chloride 0.9% 250 ML 250 ML IVPB SCH (14:41)
[2021-10-26] MEDS: Atorvastatin Calcium 40 MG TAB PO SCH (21:37)
[2021-10-26] MEDS: Lantus 1000 UNITS/10 ML VIAL SC SCH (21:55)
[2021-10-27] MEDS: VANCOMYCIN 1.25 GM/250 ML BAG 1.25 GM in Premix Bag 1 BAG IVPB SCH (02:30)
[2021-10-27 02:48] LABS: #Basophils 0.1 thou/uL (0.0-0.2); #Eosinphils 0.3 thou/uL (0.0-0.7); #Lymphocytes 2.2 thou/uL (1.20-3.40); #Monocytes 0.9 thou/uL (0.11-0.59); #Neutrophils 4.2 thou/uL (1.40-6.50); %Eosinophils 4.2 % (0.0-10.0); %Lymphocytes 28.1 % (21.0-51.0); %Monocytes 11.3 % (0.0-10.0); %Neutrophils 55.4 % (42.0-75.0); Hemoglobin 7.8 g/dL (12.0-16.0); Mean Corpuscular HGB CONC 34.3 g/dL (32.0-36.0); Mean Corpuscular Hemoglobin 31.2 pg (27.0-31.0); Mean Corpuscular Volume 90.8 fL (78.0-98.0); Mean Platelet Volume 6.9 fL (7.4-10.4); Platelet Count 302 thou/uL (130-400); RBC Distribution Width 12.8 % (11.5-14.5); White Blood Cell (WBC) Count 7.6 thou/uL (4.8-10.8)
[2021-10-27 02:55] LABS: Vancomycin, Trough 16.7 ug/mL
[2021-10-27 03:06] LABS: Anion Gap 14 mmol/L (10-20); BUN (Urea Nitrogen) 12 mg/dL (7.0-18.7); Calc. Creatinine Clearance 91 mL/min (70-130); Calcium 8.5 mg/dL (7.8-10.44); Carbon Dioxide 23 mmol/L (22-29); Chloride 108 mmol/L (98-107); Glucose 196 mg/dL (70-105); Magnesium 1.9 mg/dL (1.6-2.6); Phosphorus 3.6 mg/dL (2.3-4.7); Potassium 4.5 mmol/L (3.5-5.1); Sodium 140 mmol/L (136-145)
[2021-10-27] MEDS: hydrALAZINE 20 MG/ML VIAL SLOW IVP PRN ×2 (05:23→16:46)
[2021-10-27] MEDS: Nicotine 14 MG PATCH TD SCH (05:30)
[2021-10-27] MEDS: HumaLOG 300 UNITS/3 ML VIAL SC SCH ×3 (08:18→18:56)
[2021-10-27] MEDS: HYDROcodone/Acetaminophen 5/325 mg Tablet PO PRN ×4 (08:21→22:53)
[2021-10-27] MEDS: Famotidine 20 MG TAB PO SCH ×2 (08:22→20:29)
[2021-10-27] MEDS: Saccharomyces boulardii 250 MG CAP PO SCH (08:22)
[2021-10-27] MEDS: Zinc Sulfate 220 MG CAP PO SCH (08:22)
[2021-10-27] MEDS: Amlodipine 10 MG TAB PO SCH (08:22)
[2021-10-27] MEDS: Sodium Chloride 0.9% 1,000 ML IV SCH ×2 (08:26→18:51)
[2021-10-27] MEDS ORDERED: Enoxaparin Sodium 40 MG/0.4 ML SYRINGE SC SCH (09:00)
[2021-10-27] MEDS: Iron, Sodium Ferric Gluconate 250 MG in Sodium Chloride 0.9% 250 ML 250 ML IVPB SCH (09:47)
[2021-10-27] MEDS: Aspirin 81 mg Enteric Coated Tablet PO SCH (10:01)
[2021-10-27] MEDS: Cefepime 2 GM in Sodium Chloride 0.9% 100 ML IVPB SCH ×2 (12:27→20:30)
[2021-10-27] MEDS: Promethazine 25 MG TAB PO PRN (12:30)
[2021-10-27] MEDS ORDERED: Fentanyl 100 MCG/2 ML VIAL ONE (14:53)
[2021-10-27] MEDS ORDERED: Sodium Chloride 0.9% 10 ML ONE (14:54)
[2021-10-27] MEDS ORDERED: HYDROmorphone 2 MG/ML VIAL ONE (14:54)
[2021-10-27] MEDS ORDERED: Midazolam HCl 2 mg/2 ml Vial ONE (15:04)
[2021-10-27] MEDS ORDERED: Lidocaine 1% PF 5 ML VIAL ONE (15:16)
[2021-10-27] MEDS ORDERED: Ondansetron PF 4 MG/2 ML Vial ONE (15:16)
[2021-10-27] MEDS ORDERED: Phenylephrine 10 MG/ML VIAL ONE (15:16)
[2021-10-27] MEDS ORDERED: PROPOFOL 200 MG/20 ML VIAL ONE (15:16)
[2021-10-27] MEDS ORDERED: Dexamethasone 20 MG/5 ML VIAL ONE (15:16)
[2021-10-27] MEDS ORDERED: Bupivacaine PF 0.5% 30 ML VIAL ONE (15:33)
[2021-10-27] MEDS ORDERED: Lidocaine 1% w/Epinephrine 1:100K 30 ML VIAL ONE (15:33)
[2021-10-27] MEDS ORDERED: HYDROmorphone 2 MG/ML VIAL SLOW IVP PRN (15:43)
[2021-10-27] MEDS ORDERED: Promethazine HCl 25 MG/ML VIAL IVPB PRN (15:43)
[2021-10-27] MEDS ORDERED: Meperidine HCl/PF 25 MG/ML VIAL SLOW IVP PRN (15:43)
[2021-10-27] MEDS ORDERED: Ondansetron HCl/PF 4 MG/2 ML Vial IVP PRN (15:43)
[2021-10-27] MEDS ORDERED: Promethazine HCl 25 MG/ML VIAL IM PRN (15:43)
[2021-10-27] MEDS ORDERED: Morphine 4 MG/ML VIAL SLOW IVP SCH (19:30)
[2021-10-27] MEDS: Atorvastatin Calcium 40 MG TAB PO SCH (20:29)
[2021-10-27] MEDS: Lantus 1000 UNITS/10 ML VIAL SC SCH (20:47)
[2021-10-28] MEDS: Morphine 4 MG/ML VIAL SLOW IVP PRN ×4 (00:19→14:40)
[2021-10-28] MEDS: Sodium Chloride 0.9% 1,000 ML IV SCH ×3 (00:27→13:51)
[2021-10-28] MEDS: VANCOMYCIN 1.25 GM/250 ML BAG 1.25 GM in Premix Bag 1 BAG IVPB SCH (02:47)
[2021-10-28 05:13] LABS: #Lymphocytes 0.8 thou/uL (1.20-3.40); #Monocytes 0.2 thou/uL (0.11-0.59); #Neutrophils 6.7 thou/uL (1.40-6.50); %Basophils 0.5 % (0.0-1.0); %Eosinophils 0.4 % (0.0-10.0); %Lymphocytes 10.4 % (21.0-51.0); %Neutrophils 86.7 % (42.0-75.0); Hemoglobin 8.1 g/dL (12.0-16.0); Mean Corpuscular HGB CONC 32.4 g/dL (32.0-36.0); Mean Corpuscular Hemoglobin 29.8 pg (27.0-31.0); Mean Corpuscular Volume 91.9 fL (78.0-98.0); Mean Platelet Volume 6.9 fL (7.4-10.4); Platelet Count 321 thou/uL (130-400); Red Blood Cell (RBC) Count 2.72 mill/uL (4.20-5.40); White Blood Cell (WBC) Count 7.7 thou/uL (4.8-10.8)
[2021-10-28 05:41] LABS: Anion Gap 16 mmol/L (10-20); BUN (Urea Nitrogen) 16 mg/dL (7.0-18.7); Calc. Creatinine Clearance 85 mL/min (70-130); Calcium 8.5 mg/dL (7.8-10.44); Carbon Dioxide 18 mmol/L (22-29); Chloride 105 mmol/L (98-107); Glucose 311 mg/dL (70-105); Magnesium 1.9 mg/dL (1.6-2.6); Phosphorus 3.2 mg/dL (2.3-4.7); Potassium 4.4 mmol/L (3.5-5.1); Sodium 135 mmol/L (136-145)
[2021-10-28] MEDS: HYDROcodone/Acetaminophen 5/325 mg Tablet PO PRN ×3 (05:49→23:17)
[2021-10-28] MEDS: HumaLOG 300 UNITS/3 ML VIAL SC PRN (05:50)
[2021-10-28] MEDS: Nicotine 14 MG PATCH TD SCH (06:05)
[2021-10-28] MEDS: Aspirin 81 mg Enteric Coated Tablet PO SCH (08:40)
[2021-10-28] MEDS: Famotidine 20 MG TAB PO SCH ×2 (08:40→20:53)
[2021-10-28] MEDS: Sodium Bicarbonate Tab 325 MG TAB PO SCH ×3 (08:40→20:53)
[2021-10-28] MEDS: Zinc Sulfate 220 MG CAP PO SCH (08:40)
[2021-10-28] MEDS: Saccharomyces boulardii 250 MG CAP PO SCH (08:40)
[2021-10-28] MEDS: Amlodipine 10 MG TAB PO SCH (08:41)
[2021-10-28] MEDS: Cefepime 2 GM in Sodium Chloride 0.9% 100 ML IVPB SCH ×2 (08:41→20:52)
[2021-10-28] MEDS: HumaLOG 300 UNITS/3 ML VIAL SC SCH ×3 (08:45→17:14)
[2021-10-28] MEDS: Promethazine 25 MG TAB PO PRN (14:25)
[2021-10-28] MEDS: HYDROcodone/Acetaminophen 10/325 mg Tablet PO PRN (18:25)
[2021-10-28] MEDS: Lantus 1000 UNITS/10 ML VIAL SC SCH (20:52)
[2021-10-28] MEDS: Atorvastatin Calcium 40 MG TAB PO SCH (20:53)
[2021-10-29] MEDS: Sodium Chloride 0.9% 1,000 ML IV SCH (01:57)
[2021-10-29 02:26] LABS: #Eosinphils 0.1 thou/uL (0.0-0.7); #Lymphocytes 2.1 thou/uL (1.20-3.40); #Monocytes 0.7 thou/uL (0.11-0.59); #Neutrophils 7.7 thou/uL (1.40-6.50); %Basophils 0.4 % (0.0-1.0); %Eosinophils 0.9 % (0.0-10.0); %Lymphocytes 19.6 % (21.0-51.0); %Monocytes 6.6 % (0.0-10.0); %Neutrophils 72.6 % (42.0-75.0); Hemoglobin 7.4 g/dL (12.0-16.0); Mean Corpuscular Hemoglobin 31.2 pg (27.0-31.0); Mean Corpuscular Volume 91.7 fL (78.0-98.0); Mean Platelet Volume 6.7 fL (7.4-10.4); Platelet Count 288 thou/uL (130-400); Red Blood Cell (RBC) Count 2.38 mill/uL (4.20-5.40); White Blood Cell (WBC) Count 10.6 thou/uL (4.8-10.8)
[2021-10-29] MEDS: VANCOMYCIN 1.25 GM/250 ML BAG 1.25 GM in Premix Bag 1 BAG IVPB SCH (02:33)
[2021-10-29 02:45] LABS: Vancomycin, Trough 16.4 ug/mL
[2021-10-29 02:54] LABS: Anion Gap 13 mmol/L (10-20); BUN (Urea Nitrogen) 18 mg/dL (7.0-18.7); Calc. Creatinine Clearance 97 mL/min (70-130); Calcium 8.1 mg/dL (7.8-10.44); Carbon Dioxide 20 mmol/L (22-29); Chloride 106 mmol/L (98-107); Glucose 323 mg/dL (70-105); Magnesium 1.9 mg/dL (1.6-2.6); Phosphorus 3.1 mg/dL (2.3-4.7); Potassium 3.9 mmol/L (3.5-5.1); Sodium 135 mmol/L (136-145)
[2021-10-29] MEDS: HumaLOG 300 UNITS/3 ML VIAL SC PRN (05:41)
[2021-10-29] MEDS: Nicotine 14 MG PATCH TD SCH (05:44)
[2021-10-29] MEDS ORDERED: Epoetin (ESRD) 10,000 UNITS/ML VIAL SC SCH (08:00)
[2021-10-29] MEDS: Cefepime 2 GM in Sodium Chloride 0.9% 100 ML IVPB SCH ×2 (08:58→20:34)
[2021-10-29] MEDS: Aspirin 81 mg Enteric Coated Tablet PO SCH (08:59)
[2021-10-29] MEDS: Zinc Sulfate 220 MG CAP PO SCH (09:00)
[2021-10-29] MEDS: Famotidine 20 MG TAB PO SCH ×2 (09:00→20:34)
[2021-10-29] MEDS: Amlodipine 10 MG TAB PO SCH (09:00)
[2021-10-29] MEDS ORDERED: Morphine 4 MG/ML VIAL SLOW IVP SCH (09:00)
[2021-10-29] MEDS: Sodium Bicarbonate Tab 325 MG TAB PO SCH ×3 (09:00→20:34)
[2021-10-29] MEDS: HumaLOG 300 UNITS/3 ML VIAL SC SCH ×3 (09:01→19:12)
[2021-10-29] MEDS: Promethazine 25 MG TAB PO PRN ×3 (10:19→22:38)
[2021-10-29] MEDS: Saccharomyces boulardii 250 MG CAP PO SCH (10:19)
[2021-10-29] MEDS ORDERED: Carvedilol 6.25 MG TAB PO SCH (10:30)
[2021-10-29] MEDS: HYDROcodone/Acetaminophen 5/325 mg Tablet PO PRN ×3 (11:16→22:38)
[2021-10-29] MEDS ORDERED: EPOETIN ALFA-EPBX (ESRD) 10,000 UNIT/ML VIAL SC SCH (12:00)
[2021-10-29] MEDS: Iron, Sodium Ferric Gluconate 250 MG in Sodium Chloride 0.9% 250 ML 250 ML IVPB SCH (12:32)
[2021-10-29] MEDS: Carvedilol 6.25 MG TAB PO SCH (16:43)
[2021-10-29] MEDS: Atorvastatin Calcium 40 MG TAB PO SCH (20:34)
[2021-10-29] MEDS: Lantus 1000 UNITS/10 ML VIAL SC SCH (20:35)
[2021-10-30] MEDS: VANCOMYCIN 1.25 GM/250 ML BAG 1.25 GM in Premix Bag 1 BAG IVPB SCH (03:26)
[2021-10-30 05:37] LABS: #Basophils 0.1 thou/uL (0.0-0.2); #Eosinphils 0.2 thou/uL (0.0-0.7); #Lymphocytes 3.4 thou/uL (1.20-3.40); #Monocytes 1.1 thou/uL (0.11-0.59); #Neutrophils 7.4 thou/uL (1.40-6.50); %Basophils 0.7 % (0.0-1.0); %Eosinophils 1.9 % (0.0-10.0); %Lymphocytes 27.7 % (21.0-51.0); %Monocytes 8.8 % (0.0-10.0); %Neutrophils 60.9 % (42.0-75.0); Hemoglobin 7.8 g/dL (12.0-16.0); Mean Corpuscular HGB CONC 32.2 g/dL (32.0-36.0); Mean Corpuscular Hemoglobin 29.7 pg (27.0-31.0); Mean Corpuscular Volume 92.3 fL (78.0-98.0); Mean Platelet Volume 6.7 fL (7.4-10.4); Platelet Count 288 thou/uL (130-400); RBC Distribution Width 13.2 % (11.5-14.5); Red Blood Cell (RBC) Count 2.61 mill/uL (4.20-5.40); White Blood Cell (WBC) Count 12.1 thou/uL (4.8-10.8)
[2021-10-30 05:59] LABS: Anion Gap 10 mmol/L (10-20); BUN (Urea Nitrogen) 24 mg/dL (7.0-18.7); Calc. Creatinine Clearance 102 mL/min (70-130); Calcium 8.2 mg/dL (7.8-10.44); Carbon Dioxide 22 mmol/L (22-29); Chloride 110 mmol/L (98-107); Glucose 112 mg/dL (70-105); Phosphorus 3.2 mg/dL (2.3-4.7); Potassium 4.4 mmol/L (3.5-5.1); Sodium 138 mmol/L (136-145)
[2021-10-30] MEDS: Promethazine 25 MG TAB PO PRN ×2 (06:20→20:16)
[2021-10-30] MEDS: Nicotine 14 MG PATCH TD SCH (06:21)
[2021-10-30] MEDS: Amlodipine 10 MG TAB PO SCH (08:45)
[2021-10-30] MEDS: Saccharomyces boulardii 250 MG CAP PO SCH (08:45)
[2021-10-30] MEDS: Carvedilol 6.25 MG TAB PO SCH ×2 (08:45→16:49)
[2021-10-30] MEDS: Zinc Sulfate 220 MG CAP PO SCH (08:45)
[2021-10-30] MEDS: Aspirin 81 mg Enteric Coated Tablet PO SCH (08:45)
[2021-10-30] MEDS: Sodium Bicarbonate Tab 325 MG TAB PO SCH ×3 (08:45→20:18)
[2021-10-30] MEDS: Famotidine 20 MG TAB PO SCH ×2 (08:45→20:18)
[2021-10-30] MEDS: Iron, Sodium Ferric Gluconate 250 MG in Sodium Chloride 0.9% 250 ML 250 ML IVPB SCH (08:46)
[2021-10-30] MEDS: HumaLOG 300 UNITS/3 ML VIAL SC SCH (08:48)
[2021-10-30] MEDS: Cefepime 2 GM in Sodium Chloride 0.9% 100 ML IVPB SCH (12:38)
[2021-10-30] MEDS ORDERED: Ciprofloxacin 500 MG TAB PO SCH (16:00)
[2021-10-30] MEDS: HYDROcodone/Acetaminophen 5/325 mg Tablet PO PRN (16:48)
[2021-10-30] MEDS: Atorvastatin Calcium 40 MG TAB PO SCH (20:18)
[2021-10-30] MEDS: Lantus 1000 UNITS/10 ML VIAL SC SCH (20:18)
[2021-10-30] MEDS: HYDROcodone/Acetaminophen 10/325 mg Tablet PO PRN (20:45)
[2021-10-31] MEDS ORDERED: Ciprofloxacin 500 MG TAB PO SCH (06:00)
[2021-10-31] MEDS: HumaLOG 300 UNITS/3 ML VIAL SC PRN (06:05)
[2021-10-31] MEDS: HYDROcodone/Acetaminophen 10/325 mg Tablet PO PRN (06:09)
[2021-10-31] MEDS: Promethazine 25 MG TAB PO PRN (06:09)
[2021-10-31] MEDS: Amlodipine 10 MG TAB PO SCH (08:03)
[2021-10-31] MEDS: Saccharomyces boulardii 250 MG CAP PO SCH (08:03)
[2021-10-31] MEDS: Sodium Bicarbonate Tab 325 MG TAB PO SCH (08:03)
[2021-10-31] MEDS: Carvedilol 6.25 MG TAB PO SCH (08:03)
[2021-10-31] MEDS: Zinc Sulfate 220 MG CAP PO SCH (08:03)
[2021-10-31] MEDS: Famotidine 20 MG TAB PO SCH (08:03)
[2021-10-31] MEDS: Aspirin 81 mg Enteric Coated Tablet PO SCH (08:04)
[2021-10-31] MEDS: hydrALAZINE 20 MG/ML VIAL SLOW IVP PRN (08:05)
[2021-10-31] MEDS: Nicotine 14 MG PATCH TD SCH (10:58)
[2021-10-31 11:49] VITALS: BP 141/69; TEMP 98.1
== END 2021-10-31 13:00 | disposition home or self-care (01) | DRG 603 ==
LOC: ERS 23:17 → T4-A 10-23 02:39 → OBSVTOIN 10-23 02:39 → NEURO 10-25 15:28
PROVIDERS: ADMIT Internal Medicine; ATTEND Family Medicine
PROC: 0J9R3ZZ Drainage of Left Foot Subcutaneous Tissue and Fascia, Percutaneous Approach (ICD-10-PCS; principal; 2021-10-24)
DX: L02.612 Cutaneous abscess of left foot (principal); N17.9 Acute kidney failure, unspecified; Z20.822 Contact with and (suspected) exposure to COVID-19; E87.2 Acidosis; E87.1 Hypo-osmolality and hyponatremia; L97.429 Non-pressure chronic ulcer of left heel and midfoot with unspecified severity; L03.116 Cellulitis of left lower limb; G40.909 Epilepsy, unspecified, not intractable, without status epilepticus; F17.210 Nicotine dependence, cigarettes, uncomplicated; L08.9 Local infection of the skin and subcutaneous tissue, unspecified; K21.9 Gastro-esophageal reflux disease without esophagitis; H54.7 Unspecified visual loss; E66.9 Obesity, unspecified; E78.5 Hyperlipidemia, unspecified; E11.628 Type 2 diabetes mellitus with other skin complications; E11.621 Type 2 diabetes mellitus with foot ulcer; E11.65 Type 2 diabetes mellitus with hyperglycemia; E11.649 Type 2 diabetes mellitus with hypoglycemia without coma; F12.10 Cannabis abuse, uncomplicated; D50.9 Iron deficiency anemia, unspecified; B96.4 Proteus (mirabilis) (morganii) as the cause of diseases classified elsewhere; B96.89 Other specified bacterial agents as the cause of diseases classified elsewhere; E11.22 Type 2 diabetes mellitus with diabetic chronic kidney disease; I12.9 Hypertensive chronic kidney disease with stage 1 through stage 4 chronic kidney disease, or unspecified chronic kidney disease; N18.9 Chronic kidney disease, unspecified; E11.42 Type 2 diabetes mellitus with diabetic polyneuropathy; E11.319 Type 2 diabetes mellitus with unspecified diabetic retinopathy without macular edema; I16.0 Hypertensive urgency; Z98.51 Tubal ligation status; Z88.1 Allergy status to other antibiotic agents; Z88.8 Allergy status to other drugs, medicaments and biological substances; Z68.31 Body mass index [BMI] 31.0-31.9, adult; Z79.2 Long term (current) use of antibiotics; Z79.4 Long term (current) use of insulin; Z79.899 Other long term (current) drug therapy
CPT/HCPCS: 10060; 36415; 36416; 70450; 70551; 71045; 76770; 78315; 80048; 80053; 80061; 80202; 81003; 81015; 82550; 82570; 82728; 83036; 83540; 83550; 83605; 83735; 84100; 84156; 84300; 84540; 85025; 85652; 86140; 87040; 87070; 87077; 87186; 87205; 90471; 90686; 90732; 93005; 93010; 93306; 93880; 93923; 96365; 96367; 96372; 96375; A9503; A9579; G0008; G0009; J0295; J0360; J0692; J1100; J1170; J1610; J1650; J1815; J1885; J2250; J2270; J2370; J2405; J2704; J2765; J2916; J3010; J3370; J3490; J7050; J7120; Q0169; Q5105; S0020; U0002

== ENCOUNTER 2023-08-16 13:35 | Emergency (ER) | payer OTHER ==
[2023-08-16] MEDS ORDERED: Acetaminophen 325 MG TAB ONE (15:10)
== END 2023-08-16 15:50 | disposition left against medical advice (07) ==
LOC: ERS 13:35
DX: S16.1XXA Strain of muscle, fascia and tendon at neck level, initial encounter (principal); S39.012A Strain of muscle, fascia and tendon of lower back, initial encounter; E78.5 Hyperlipidemia, unspecified; I10 Essential (primary) hypertension; G40.909 Epilepsy, unspecified, not intractable, without status epilepticus; K21.9 Gastro-esophageal reflux disease without esophagitis; E11.9 Type 2 diabetes mellitus without complications; V29.39XA Other motorcycle (driver) (passenger) injured in unspecified nontraffic accident, initial encounter
CPT/HCPCS: 72040; 72100

== ENCOUNTER 2024-04-05 20:14 | Inpatient (IN) | payer OTHER ==
[2024-04-05] MEDS ORDERED: Acetaminophen 325 MG TAB PO PRN (21:00)
[2024-04-05] MEDS ORDERED: Dextrose 5% in Water 1,000 ML IV PRN (21:06)
[2024-04-05] MEDS ORDERED: Dextrose 50% Abboject 50 ML SYRINGE SLOW IVP PRN (21:06)
[2024-04-05] MEDS ORDERED: Glucagon 1 MG/ML KIT IM PRN (21:06)
[2024-04-05] MEDS ORDERED: Electrolyte Replacement Protocol 1 EACH FS PRN (21:07)
[2024-04-05] MEDS ORDERED: hydrALAZINE 20 MG/ML VIAL SLOW IVP PRN (21:07)
[2024-04-05] MEDS ORDERED: oxyCODONE/Acetaminophen 5 mg/325 mg Tablet PO PRN (21:32)
[2024-04-05] MEDS: Magnesium 2 GM/50 ML(in water) 2 GM in Premix 1 BAG IVPB SCH (22:30)
[2024-04-05 22:36] LABS: Critical Call Chem Troponin I NUR.MGD @2235; Troponin I 0.703 ng/mL (< 0.028)
[2024-04-05] MEDS: oxyCODONE/Acetaminophen 5 mg/325 mg Tablet PO PRN (22:48)
[2024-04-05] MEDS: HumaLOG 300 UNITS/3 ML VIAL SC PRN (23:41)
[2024-04-05] MEDS: Insulin Glargine 30 UNITS/0.3 ML VIAL SC SCH (23:41)
[2024-04-06 01:18] LABS: Critical Call Chem Troponin I RESULT DECREASING; Troponin I 0.635 ng/mL (< 0.028)
[2024-04-06 04:12] LABS: #Basophils 0.03 10x3/uL (0.0-0.2); %Basophils 0.2 % (0.0-1.0); %Eosinophils 1.3 % (0.0-10.0); %Lymphocytes 27.7 % (21.0-51.0); %Monocytes 5.2 % (0.0-10.0); Hematocrit 30.4 % (36.0-47.0); Hemoglobin 10.1 g/dL (12.0-16.0); Mean Corpuscular HGB CONC 33.2 g/dL (32.0-36.0); Mean Corpuscular Hemoglobin 30.2 pg (27.0-31.0); Mean Platelet Volume 9.3 fL (7.4-10.4); Platelet Count 372 10x3/uL (130-400); RBC Distribution Width 13.8 % (11.5-14.5); Red Blood Cell (RBC) Count 3.34 mill/uL (4.20-5.40)
[2024-04-06 04:25] LABS: ALT (SGPT) 8 U/L (8-55); AST (SGOT) 8 U/L (5-34); Albumin 2.4 g/dL (3.5-5.0); Alkaline Phosphatase 254 U/L (40-110); Anion Gap 16 mmol/L (10-20); BUN (Urea Nitrogen) 21 mg/dL (9.8-20.1); Bilirubin, Total 0.3 mg/dL (0.2-1.2); Calc. Creatinine Clearance 51 mL/min (70-130); Calcium 8.9 mg/dL (7.8-10.44); Carbon Dioxide 22 mmol/L (22-29); Chloride 105 mmol/L (98-107); Estimated GFR 44; Globulin 3.4 g/dL (2.4-3.5); Glucose 121 mg/dL (70-105); Magnesium 1.9 mg/dL (1.6-2.6); Protein, Total 5.8 g/dL (6.0-8.3); Sodium 139 mmol/L (136-145)
[2024-04-06 04:26] LABS: Amphetamine Not Detected (NotDetected); Barbiturates Screen Not Detected (NotDetected); Benzodiazepine Screen Detected (NotDetected); Cocaine Metabolite Screen Not Detected (NotDetected); Methadone Not Detected (NotDetected); Methamphetamine Not Detected (NotDetected); Opiate Screen Detected (NotDetected); Oxycodone Screen Detected (NotDetected); Phencyclidine (PCP) Not Detected (NotDetected); THC/Cannabinoid Screen Detected (NotDetected); Tricyclic Screen Not Detected (NotDetected)
[2024-04-06 04:52] LABS: Hemoglobin A1c 11.4 % (4.0-6.0)
[2024-04-06] MEDS: Furosemide 40 MG (4 mL) VIAL SLOW IVP SCH (06:09)
[2024-04-06] MEDS: Divalproex Sodium 500 MG ER.TAB PO SCH (09:11)
[2024-04-06] MEDS: Enoxaparin 40 MG (0.4 mL) SYRINGE SC SCH (09:11)
[2024-04-06] MEDS: Lisinopril 5 MG TAB PO SCH (09:11)
[2024-04-06] MEDS: Aspirin 81 mg Enteric Coated Tablet PO SCH (09:11)
[2024-04-06] MEDS: Metoclopramide HCl 10 MG TAB PO SCH (09:11)
[2024-04-06] MEDS: Magnesium 2 GM/50 ML(in water) 2 GM in Premix 1 BAG IVPB SCH (09:13)
[2024-04-06] MEDS: Diazepam 2 MG TAB PO SCH (12:01)
[2024-04-06 13:53] VITALS: BMI 22.4
[2024-04-06] MEDS ORDERED: Communication Order-Pharmacy FS SCH (17:15)
[2024-04-06] MEDS: Atorvastatin Calcium 40 MG TAB PO SCH (21:19)
[2024-04-06] MEDS: Insulin Glargine 30 UNITS/0.3 ML VIAL SC SCH (21:20)
[2024-04-07] MEDS: Sodium Chloride 0.9% 300 ML IV SCH (03:33)
[2024-04-07 04:12] LABS: #Basophils 0.03 10x3/uL (0.0-0.2); %Basophils 0.3 % (0.0-1.0); %Eosinophils 1.8 % (0.0-10.0); %Lymphocytes 26.9 % (21.0-51.0); %Monocytes 5.2 % (0.0-10.0); %Neutrophils 65.5 % (42.0-75.0); Hematocrit 28.9 % (36.0-47.0); Hemoglobin 9.3 g/dL (12.0-16.0); Mean Corpuscular HGB CONC 32.2 g/dL (32.0-36.0); Mean Corpuscular Hemoglobin 29.1 pg (27.0-31.0); Mean Corpuscular Volume 90.3 fL (78.0-98.0); Mean Platelet Volume 9.7 fL (7.4-10.4); Platelet Count 357 10x3/uL (130-400); RBC Distribution Width 13.8 % (11.5-14.5)
[2024-04-07 04:26] LABS: Anion Gap 16 mmol/L (10-20); BUN (Urea Nitrogen) 26 mg/dL (9.8-20.1); Calc. Creatinine Clearance 38 mL/min (70-130); Calcium 8.5 mg/dL (7.8-10.44); Carbon Dioxide 23 mmol/L (22-29); Chloride 103 mmol/L (98-107); Estimated GFR 31; Glucose 241 mg/dL (70-105); Magnesium 1.8 mg/dL (1.6-2.6); Potassium 4.6 mmol/L (3.5-5.1); Sodium 137 mmol/L (136-145)
[2024-04-07] MEDS: Magnesium 2 GM/50 ML(in water) 2 GM in Premix 1 BAG IVPB SCH (07:47)
[2024-04-07 08:15] VITALS: BMI 22.6
[2024-04-07] MEDS: Albumin 25% 25 GM (100 mL) BOT IVPB SCH (10:56)
[2024-04-07] MEDS: Sodium Chloride 0.9% 500 ML IV SCH (11:15)
[2024-04-07] MEDS: Ondansetron ODT 4 MG TAB PO PRN (20:24)
[2024-04-07] MEDS: Promethazine 25 MG TAB PO PRN (20:27)
[2024-04-07] MEDS: Diazepam 2 MG TAB PO SCH (20:27)
[2024-04-08 05:05] LABS: #Basophils 0.03 10x3/uL (0.0-0.2); %Basophils 0.4 % (0.0-1.0); %Eosinophils 2.8 % (0.0-10.0); %Monocytes 4.7 % (0.0-10.0); %Neutrophils 55.8 % (42.0-75.0); Hematocrit 31.1 % (36.0-47.0); Hemoglobin 9.5 g/dL (12.0-16.0); Mean Corpuscular HGB CONC 30.5 g/dL (32.0-36.0); Mean Corpuscular Hemoglobin 28.9 pg (27.0-31.0); Mean Corpuscular Volume 94.5 fL (78.0-98.0); Mean Platelet Volume 9.6 fL (7.4-10.4); Platelet Count 367 10x3/uL (130-400); RBC Distribution Width 13.7 % (11.5-14.5); Red Blood Cell (RBC) Count 3.29 mill/uL (4.20-5.40)
[2024-04-08 05:19] LABS: Anion Gap 18 mmol/L (10-20); BUN (Urea Nitrogen) 27 mg/dL (9.8-20.1); Calc. Creatinine Clearance 41 mL/min (70-130); Calcium 9.4 mg/dL (7.8-10.44); Carbon Dioxide 22 mmol/L (22-29); Chloride 104 mmol/L (98-107); Estimated GFR 33; Glucose 110 mg/dL (70-105); Potassium 4.6 mmol/L (3.5-5.1); Sodium 139 mmol/L (136-145)
[2024-04-08] MEDS: Furosemide 40 MG (4 mL) VIAL SLOW IVP SCH (17:52)
[2024-04-08] MEDS: DOBUTamine 500 mg/250 ml 250 ML IVPB SCH (17:55)
[2024-04-09 04:26] LABS: #Basophils 0.04 10x3/uL (0.0-0.2); %Basophils 0.5 % (0.0-1.0); %Eosinophils 1.9 % (0.0-10.0); %Lymphocytes 37.8 % (21.0-51.0); %Monocytes 6.1 % (0.0-10.0); %Neutrophils 53.5 % (42.0-75.0); Hematocrit 29.2 % (36.0-47.0); Hemoglobin 9.3 g/dL (12.0-16.0); Mean Corpuscular HGB CONC 31.8 g/dL (32.0-36.0); Mean Corpuscular Hemoglobin 29.5 pg (27.0-31.0); Mean Corpuscular Volume 92.7 fL (78.0-98.0); Mean Platelet Volume 9.9 fL (7.4-10.4); Platelet Count 358 10x3/uL (130-400); RBC Distribution Width 13.8 % (11.5-14.5); Red Blood Cell (RBC) Count 3.15 mill/uL (4.20-5.40)
[2024-04-09 04:47] LABS: Anion Gap 17 mmol/L (10-20); BUN (Urea Nitrogen) 28 mg/dL (9.8-20.1); Calc. Creatinine Clearance 50 mL/min (70-130); Carbon Dioxide 22 mmol/L (22-29); Chloride 104 mmol/L (98-107); Estimated GFR 40; Glucose 89 mg/dL (70-105); Potassium 4.6 mmol/L (3.5-5.1); Sodium 138 mmol/L (136-145)
[2024-04-09] MEDS ORDERED: Furosemide 40 MG (4 mL) VIAL SLOW IVP SCH (06:00)
[2024-04-09] MEDS ORDERED: Empagliflozin 10 MG TAB PO SCH (09:00)
[2024-04-09] MEDS: Ondansetron PF 4 MG/2 ML Vial IVP PRN (16:47)
[2024-04-09] MEDS: Cephalexin 250 MG CAP PO SCH ×2 (16:54→21:08)
[2024-04-09] MEDS: Carvedilol 6.25 MG TAB PO SCH (16:57)
[2024-04-09] MEDS: Furosemide 40 MG (4 mL) VIAL SLOW IVP SCH (16:57)
[2024-04-09] MEDS: Sacubitril 24MG/Valsartan 26 MG TAB PO SCH (21:08)
[2024-04-10 04:24] LABS: #Basophils 0.03 10x3/uL (0.0-0.2); %Basophils 0.4 % (0.0-1.0); %Eosinophils 1.8 % (0.0-10.0); %Lymphocytes 32.5 % (21.0-51.0); %Monocytes 7.2 % (0.0-10.0); %Neutrophils 57.7 % (42.0-75.0); Hematocrit 33.1 % (36.0-47.0); Hemoglobin 10.7 g/dL (12.0-16.0); Mean Corpuscular HGB CONC 32.3 g/dL (32.0-36.0); Mean Corpuscular Hemoglobin 29.1 pg (27.0-31.0); Mean Corpuscular Volume 89.9 fL (78.0-98.0); Mean Platelet Volume 9.8 fL (7.4-10.4); Platelet Count 354 10x3/uL (130-400); RBC Distribution Width 13.5 % (11.5-14.5); Red Blood Cell (RBC) Count 3.68 mill/uL (4.20-5.40)
[2024-04-10 04:47] LABS: Anion Gap 17 mmol/L (10-20); BUN (Urea Nitrogen) 27 mg/dL (9.8-20.1); Calc. Creatinine Clearance 53 mL/min (70-130); Calcium 9.1 mg/dL (7.8-10.44); Carbon Dioxide 22 mmol/L (22-29); Chloride 103 mmol/L (98-107); Estimated GFR 43; Glucose 232 mg/dL (70-105); Sodium 138 mmol/L (136-145)
[2024-04-10] MEDS ORDERED: Furosemide 40 MG TAB PO SCH (07:30)
[2024-04-10] MEDS: Furosemide 40 MG (4 mL) VIAL SLOW IVP SCH ×2 (08:39→15:56)
[2024-04-10] MEDS: HumaLOG 300 UNITS/3 ML VIAL SC PRN (21:18)
[2024-04-11 04:33] LABS: #Basophils Less than 0.03 10x3/uL (0.0-0.2); %Basophils 0.3 % (0.0-1.0); %Eosinophils 1.7 % (0.0-10.0); %Lymphocytes 30.3 % (21.0-51.0); %Monocytes 7.7 % (0.0-10.0); %Neutrophils 59.7 % (42.0-75.0); Hematocrit 32.1 % (36.0-47.0); Hemoglobin 10.5 g/dL (12.0-16.0); Mean Corpuscular HGB CONC 32.7 g/dL (32.0-36.0); Mean Corpuscular Hemoglobin 29.6 pg (27.0-31.0); Mean Corpuscular Volume 90.4 fL (78.0-98.0); Mean Platelet Volume 9.7 fL (7.4-10.4); Platelet Count 294 10x3/uL (130-400); RBC Distribution Width 13.5 % (11.5-14.5); Red Blood Cell (RBC) Count 3.55 mill/uL (4.20-5.40)
[2024-04-11 05:09] LABS: Anion Gap 15 mmol/L (10-20); BUN (Urea Nitrogen) 32 mg/dL (9.8-20.1); Calc. Creatinine Clearance 51 mL/min (70-130); Calcium 8.7 mg/dL (7.8-10.44); Carbon Dioxide 23 mmol/L (22-29); Chloride 99 mmol/L (98-107); Estimated GFR 41; Glucose 171 mg/dL (70-105); Potassium 3.9 mmol/L (3.5-5.1); Sodium 133 mmol/L (136-145)
[2024-04-11 08:26] VITALS: BP 96/52; TEMP 97.9
[2024-04-11] MEDS: Furosemide 40 MG TAB PO SCH (09:23)
== END 2024-04-11 12:03 | disposition home or self-care (01) | DRG 280 ==
LOC: IMCU/EMU 20:24 → 2SW 04-07 08:07
PROVIDERS: ADMIT Family Medicine; ATTEND Family Medicine
PROC: 30233J1 Transfusion of Nonautologous Serum Albumin into Peripheral Vein, Percutaneous Approach (ICD-10-PCS; principal; 2024-04-07)
DX: I13.0 Hypertensive heart and chronic kidney disease with heart failure and stage 1 through stage 4 chronic kidney disease, or unspecified chronic kidney disease (principal); I50.23 Acute on chronic systolic (congestive) heart failure; I21.4 Non-ST elevation (NSTEMI) myocardial infarction; J96.01 Acute respiratory failure with hypoxia; N17.9 Acute kidney failure, unspecified; L97.519 Non-pressure chronic ulcer of other part of right foot with unspecified severity; E11.51 Type 2 diabetes mellitus with diabetic peripheral angiopathy without gangrene; K21.9 Gastro-esophageal reflux disease without esophagitis; E78.5 Hyperlipidemia, unspecified; F17.210 Nicotine dependence, cigarettes, uncomplicated; G40.909 Epilepsy, unspecified, not intractable, without status epilepticus; N18.9 Chronic kidney disease, unspecified; E88.09 Other disorders of plasma-protein metabolism, not elsewhere classified; E11.65 Type 2 diabetes mellitus with hyperglycemia; E11.22 Type 2 diabetes mellitus with diabetic chronic kidney disease; I42.0 Dilated cardiomyopathy; Z88.8 Allergy status to other drugs, medicaments and biological substances; Z79.84 Long term (current) use of oral hypoglycemic drugs; Z79.4 Long term (current) use of insulin; Z79.899 Other long term (current) drug therapy; Z98.890 Other specified postprocedural states
CPT/HCPCS: 36415; 36416; 71046; 76705; 80048; 80053; 80306; 83036; 83735; 83880; 84443; 85025; 93306; 93798; 97139; J1250; J1650; J1815; J1940; J2405; J3475; J7030; P9047; Q0162; Q0169